=== PATIENT | male | born 1945 | race Caucasian/White ===

== ENCOUNTER 2020-10-17 16:31 | Inpatient (IN) | payer OTHER ==
[~2020-10-17] VITALS: Ht 182.9 cm; Wt 105.6 kg
[2020-10-17] MEDS ORDERED: POTCHL20ER PO (17:09)
[2020-10-17] MEDS ORDERED: FURO40 PO (17:09)
[2020-10-17] MEDS ORDERED: ZINC15 PO (17:09)
[2020-10-17] MEDS ORDERED: VITAMIN D325 MC3 PO (17:10)
[2020-10-17 17:29] LABS: BASOPHILS ABSOLUTE AUTO 0.02 K/mm3 (0.00-0.23); BASOPHILS PERCENT AUTO 0 % (0-2); EOSINOPHILS PERCENT AUTO 0 % (0-6); Hematocrit 48.5 % (37.0-53.0); Hemoglobin 15.2 g/dL (13.5-17.5); Mean Corpuscular HGB 27.1 pg (26.0-34.0); Mean Corpuscular HGB Conc 31.3 g/dL (31.5-36.5); Mean Corpuscular Volume 87 fL (80-100); Mean Platelet Volume 9.9 fL (9.1-12.4); Platelet Count 218 K/mm3 (150-400); RDW Coefficient Variation 13.7 % (11.7-14.2); RDW Standard Deviation 44.4 fL (35.1-46.3); Red Blood Cell Count 5.61 M/mm3 (4.30-5.90); White Blood Cell Count 6.59 K/mm3 (4.00-11.30)
[2020-10-17 17:31] LABS: IMMATURE GRAN ABSOLUTE AUTO 0.06 K/mm3 (0.00-0.10); IMMATURE GRAN PERCENT AUTO 1 % (0-1); LYMPHOCYTES ABSOLUTE AUTO 0.42 K/mm3 (0.84-5.20); LYMPHOCYTES PERCENT AUTO 6 % (21-46); MONOCYTES ABSOLUTE AUTO 0.32 K/mm3 (0.16-1.47); MONOCYTES PERCENT AUTO 5 % (4-13); NEUTROPHILS ABSOLUTE AUTO 5.77 K/mm3 (1.96-9.15); NEUTROPHILS PERCENT AUTO 88 % (41-73)
[2020-10-17 17:43] LABS: Alanine Aminotransfer (ALT/SGP 90 U/L (12-78); Albumin, Blood 2.9 g/dL (3.4-5.0); Albumin/Globulin Ratio 0.8 (0.8-1.8); Alk Phos 70 U/L (50-136); Anion Gap 7 mmol/L (6-16); Aspartate Aminotrans (AST/SGOT 87 U/L (12-37); Bilirubin, Total 0.7 mg/dL (0.1-1.0); Blood Urea Nitrogen 21 mg/dL (8-24); Bun/Creatinine Ratio 32.1 (12.0-20.0); CO2, Blood 28 mmol/L (21-32); Calcium, Blood 8.3 mg/dL (8.5-10.1); Chloride, Blood 108 mmol/L (98-108); Creatinine, Blood 0.65 mg/dL (0.60-1.20); Globulin, Blood 3.6 g/dL (2.2-4.0); Glomerular Filtration Rate >60 (60-); Glucose, Blood 109 mg/dL (70-99); Potassium, Blood 3.3 mmol/L (3.5-5.5); Sodium, Blood 143 mmol/L (136-145); Total Protein, Blood 6.5 g/dL (6.4-8.2)
[2020-10-17 17:44] LABS: International Normalized Ratio 1.14; Prothrombin Time Results 12.1 Sec (9.7-11.5)
[2020-10-17 17:51] LABS: BAND PERCENT MAN 1 % (0-8); BASOPHILS PERCENT MAN 0 % (0-2); EOSINOPHILS PERCENT MAN 0 % (0-6); LYMPHOCYTES ABSOLUTE MAN 0.13 K/mm3 (0.84-5.20); LYMPHOCYTES PERCENT MAN 2 % (21-46); MONOCYTES ABSOLUTE MAN 0.46 K/mm3 (0.16-1.47); MONOCYTES PERCENT MAN 7 % (4-13); NEUTROPHILS ABSOLUTE MAN 5.99 K/mm3 (1.96-9.15); SEG NEUTROPHILS PERCENT MAN 90 % (41-73); TOTAL CELLS COUNTED 100
[2020-10-17 18:03] LABS: Influenza A, PCR Negative (NEGATIVE); Influenza B, PCR Negative (NEGATIVE); Resp Syncytial Virus, PCR Negative (NEGATIVE)
[2020-10-17 18:11] LABS: SARS-Cov-2 (COVID-19) PCR, MMC Positive (NEGATIVE)
--- NOTE | 2020-10-18 01:15 | NUR ---
TX TO ICU PT ARRIVED FROM ED JUST AFTER 2100. PT ARRIVED ON 4L O2 VIA NC SATTING AT 90% WITH HR AFIB 117. RESPIRATIONS 32/MIN. DR GEORGE CAME UP TO SEE PT ROUGHLY 45 MINUTES LATER AND STATED THAT PT IS POSSIBLE PCU STATUS AND TO NOTIFY HIM IF PT DECLINED. WENT IN TO REASSESS PT AND START ADMITTING ORDERS FROM DR GEORGE AND PT RESPIRATIONS WERE UP TO 38, HR REMAINED ELEVATED AT 118 BPM, AND O2 SATS WERE 84-85% ON 4L. INCREASED O2 TO 6L TO GET SATS UP TO 90-91%. PT SEEMED A BIT MORE LETHARGIC AND TOOK LONGER TO ANSWER QUESTIONS. NOTIFIED DR GEORGE OF CHANGE IN PT STATUS, RECIEVED ORDER TO TRANSFER PT TO ICU ON PCU STATS. GAVE PT ORDERED ABX AND DEXAMETHASONE AND THEN GAVE REPORT TO [employer] WORKERMARTÍNEZ SMALLS. PT TRANSFERRED TO ICU5 AT 0022.
--- NOTE | 2020-10-18 03:03 | NUR ---
PT TO ICU 5 VIA HOSPITAL BED WITH MEDICAL FLOOR RN @ 0020. PT ALERT AND ORIENTED TO SELF, EVENT, LOCATION AND FOLLOWING DIRECTIONS, PT CALM AND COOPERATIVE, JOKING WITH STAFF. O2 PER NC TITRATED BETWEEN 4 AND 6L TO MAINTAIN SATURATIONS> 90%, PT TACHYPNEIC WITH SHALLOW BREATHS, RR 28-35, PT DENIES SOB, PT STS HE DOES NOT WEAR OXYGEN AT HOME AND DOES NOT WEAR CPAP/BIPAP AT NIGHT, CLUBBING NOTED TO FINGERNAILS, PT DOES NOT APPEAR TO BE IN RESPIRATORY DISTRESS. MONITOR SHOWS AFIB, HR 90'S-120, BP SOFT BUT STABLE WITH MAPS 80'S. PT STAPLES, REPOSITIONS SELF IN BED. RASH NOTED TO MID ABD AREA, SKIN OTHERWISE INTACT. PT DENIES GI/ ISSUES. POWERGLIDE PLACED TO PTS R UPPER ARM. LEVAQUIN INF COMPLETED, REMDESIVER INITIATED TO PERIPHERAL IV, KCL STARTED PER POWER GLIDE. CALL LIGHT WITH REACH, PT EDUCATED ON USE. PT DENIES ANY NEEDS, REPORTS THAT HE JUST WANTS TO GET SOME SLEEP.
[2020-10-18 03:58] LABS: BASOPHILS ABSOLUTE AUTO 0.01 K/mm3 (0.00-0.23); BASOPHILS PERCENT AUTO 0 % (0-2); EOSINOPHILS PERCENT AUTO 0 % (0-6); Hematocrit 44.3 % (37.0-53.0); Hemoglobin 13.7 g/dL (13.5-17.5); Mean Corpuscular HGB 27.2 pg (26.0-34.0); Mean Corpuscular HGB Conc 30.9 g/dL (31.5-36.5); Mean Corpuscular Volume 88 fL (80-100); Mean Platelet Volume 9.6 fL (9.1-12.4); Platelet Count 188 K/mm3 (150-400); RDW Standard Deviation 44.7 fL (35.1-46.3); Red Blood Cell Count 5.03 M/mm3 (4.30-5.90); White Blood Cell Count 5.95 K/mm3 (4.00-11.30)
[2020-10-18 04:01] LABS: IMMATURE GRAN ABSOLUTE AUTO 0.04 K/mm3 (0.00-0.10); IMMATURE GRAN PERCENT AUTO 1 % (0-1); LYMPHOCYTES ABSOLUTE AUTO 0.33 K/mm3 (0.84-5.20); LYMPHOCYTES PERCENT AUTO 6 % (21-46); MONOCYTES PERCENT AUTO 3 % (4-13); NEUTROPHILS ABSOLUTE AUTO 5.37 K/mm3 (1.96-9.15); NEUTROPHILS PERCENT AUTO 90 % (41-73)
[2020-10-18 04:15] LABS: Alanine Aminotransfer (ALT/SGP 82 U/L (12-78); Albumin, Blood 2.4 g/dL (3.4-5.0); Albumin/Globulin Ratio 0.8 (0.8-1.8); Alk Phos 60 U/L (50-136); Anion Gap 5 mmol/L (6-16); Aspartate Aminotrans (AST/SGOT 85 U/L (12-37); Bilirubin, Total 0.6 mg/dL (0.1-1.0); Blood Urea Nitrogen 19 mg/dL (8-24); Bun/Creatinine Ratio 34.4 (12.0-20.0); CO2, Blood 29 mmol/L (21-32); Calcium, Blood 7.7 mg/dL (8.5-10.1); Chloride, Blood 113 mmol/L (98-108); Creatinine, Blood 0.55 mg/dL (0.60-1.20); Globulin, Blood 3.1 g/dL (2.2-4.0); Glomerular Filtration Rate >60 (60-); Glucose, Blood 113 mg/dL (70-99); Potassium, Blood 3.7 mmol/L (3.5-5.5); Sodium, Blood 147 mmol/L (136-145); Total Protein, Blood 5.5 g/dL (6.4-8.2)
--- NOTE | 2020-10-18 06:49 | NUR ---
SHIFT SUMMARY PT RESTED WELL T/O NIGHT, REMAINS AROUSABLE TO VERABL STIMULI, CALM AND COOPERATIVE. OXYGEN NEEDS INCREASED WHILE SLEEPLING, CURRENTLY ON 10L PER OXYMIZER. MONITOR SHOWS AFIB WITH BBB, HR INCREASED TO 120-130'S, METOPROLOL ADMINISTERED, HR NOW 90'S-110, BP STABLE. PT REPOSITIONS SELF IN BED, NEEDS SOME ASSISTANCE WITH USE OF URINAL. CALL LIGHT WITHIN REACH.
--- NOTE | 2020-10-18 10:07 | NUR ---
AM NOTE.... ASSUMED CARE OF PT APROX 0700 PT IS A&Ox4 WITH SOME CONFUSION AT TIMES. PT WAS ADMITTED FOR COVID-19 PT IS CURRENTLY ON 10 OXYMIZER WITH O2 SATS >90%, L/S DIM AND CLEAR IN THE UPPER LOBES W/FINE CRACKLES NOTED IN THE BASES. RR EVEN AND UNLABORED BUT DYSPNIC W/ACTIVITY. PT IS IN AFIB W/BBB IN THE 100'S-120'S BP STABLE. NO EDEMA NOTED ON ASSESSMENT. PT HAD REQUESTED TO GET UP OUT OF BED AND INTO THE RECLINER CHAIR, PT WAS MODERATE ASSIST TO THE CHAIR, PT'S O2 SATS STAYED >90% DURING THE TRANSFER. BT PRESENT AND HYPOACTIVE, ABD IS SOFT AND NONTENDER TO PALP. WILL CONTINUE TO MONITOR.
--- NOTE | 2020-10-18 13:53 | NUR ---
Echocardiogram done by Patricia Monk RDCS.
[2020-10-18 17:40] LABS: Source, Urine Catheter
[2020-10-18 17:43] LABS: Appearance, Urine Clear (Clear); Bilirubin, Urine Neg (Neg); Blood, Urine 2+ (Neg); Color, Urine Yellow (P-Yellow); Glucose Qualitative, Urine Neg (Neg); Ketones, Urine 2+ (Neg); Leukocyte Esterase, Urine 1+ (Neg); Nitrite, Urine Neg (Neg); Protein, Urine 3+ (Neg); Urobilinogen, Urine NORM (Normal)
--- NOTE | 2020-10-18 17:49 | NUR ---
SHIFT SUMMARY... AT 1611 THE PT'S HR INCREASED FROM AFIB IN THE 100'S-110'S TO THE 140'S-150'S, PT'S O2 SATS DROPPED DURING THIS TIME WELL TO THE MID 80'S ON OXYMIZER AT 13-15L, WAS UPDATED AND ORDERS WERE OBTAINED FOR A VALLE CATH D/T INCREASED WORK OF BREATHING AND DECREASED O2 SATS WITH PT'S ATTEMPTING TO VOID AND MOVEMENTS IN THE BED FOR ATTENDS CHANGES AND AN AMIODERONE BOLUS AND DRIP FOLLOWING THE BOLUS. PT WAS PLACED ON AN AIRVO AT 60l AND 80% FIO2 WITH O2 SATS 90-94%. PT'S BP's CONTINUE TO BE SOFT WITH SBP IN THE 90'S- LOW 100'S. PT'S FAMILY UPDATED ON THE PT'S CONDITON AND PLAN OF CARE. WILL CONTINUE TO MONITOR UNTIL REPORT IS GIVEN TO ONCOMING RN.
[2020-10-18 17:53] LABS: Bacteria Rare /hpf; Red Blood Cells, Urine Not Seen /hpf (0-2); Squamous Epithelial Cells Not Seen /hpf (Few); White Blood Cells, Urine 0-2 /hpf (0-5)
--- NOTE | 2020-10-18 21:32 | NUR ---
ASSUMPTION OF CARE PT RESTING IN BED, WATCHING TELEVISION, ORIENTED TO SELF, EVENT, LOCATION, AND FOLLOWING DIRECTIONS. PT ON AIRVO @ 60L AND FIO2 82% TO MAINTAIN OXYGEN SATURATIONS> 89%, PT IS TACHYPNEIC WITH SHALLOW RESPIRATIONS BUT BREATHING IS UNLABORED, DOES APPEAR TO BE IN RESP DISTRESS AND DENIES SOB. MONITOR SHOWS AFIB WITH HR 90'S-120, BP SOFT BUT STABLE WITH MAPS> 65, AMIO GTT INF @ 1 (SEE FLOWSHEET FOR RATE CHANGES). PT TOLERATING PO FLUIDS, DENIES GI ISSUES. VALLE IN PLACE. PT STAPLES, REPOSITIONSE SELF IN BED, CALL LIGHT WITHIN REACH.
--- NOTE | 2020-10-18 22:49 | NUR ---
OXYGEN DESATURATIONS TO 83%, TO PTS ROOM, PT HAD REMOVED AIRVO. PT REPORTS DISCOMFORT WITH AIRVO STATING "IT FEELS LIKE A LEAF BLOWER", DECREASED SETTINGS ON AIRVO TO 50L AND FIO2 70% AND O2 SATURATIONS MAINTAINED 90-92%, PT STS IT FEELS A LITTLE BETTER AND AGREEABLE TO CONTINUE WEARING AIRVO.
[2020-10-19 04:50] LABS: Anion Gap 6 mmol/L (6-16); Blood Urea Nitrogen 26 mg/dL (8-24); Bun/Creatinine Ratio 44.8 (12.0-20.0); CO2, Blood 26 mmol/L (21-32); Calcium, Blood 8.3 mg/dL (8.5-10.1); Chloride, Blood 116 mmol/L (98-108); Creatinine, Blood 0.58 mg/dL (0.60-1.20); Glomerular Filtration Rate >60 (60-); Glucose, Blood 141 mg/dL (70-99); Phosphorus, Blood 2.6 mg/dL (2.5-4.9); Potassium, Blood 3.7 mmol/L (3.5-5.5); Sodium, Blood 148 mmol/L (136-145)
--- NOTE | 2020-10-19 06:35 | NUR ---
SHIFT SUMMARY PT RESTED T/O SHIFT, REMAINS ORIENTED x4, VERY PLEASANT AND COOPERATIVE, MORE INTERACTIVE WITH STAFF AND CARRYING ON CONVERSATIONS. PT ON 11L PER OXYMIZER FOR MOST OF NIGHT, TITRATED TO NC @ APPROX 0400 AND PT CURRENTLY AT 4L PER NC WITH O2 SATURATIONS 89-91%. PT DENIES SOB. PT REMAINS IN AFIB WITH HR 90-120, BP STABLE. PT REPORTING INCREASED APPETITE, REQUESTS OATMEAL AND CHOCOLATE MILK FOR BREAKFAST, FOOD REQUEST PLACED. VALLE REMAINS IN PLACE WITH APPROX 350ml URINE OUT THIS SHIFT. CALL LIGHT WITHIN REACH. PROVIDED PT WITH TELEPHONE UPON REQUEST, PT STS HE WOULD LIKE TO CALL HIS TODAY, PT INSTRUCTED ON USE OF TELEPHONE.
--- NOTE | 2020-10-19 08:16 | NUR ---
AM NOTE... ASSUMED CARE OF PT APROX 0700, PT IS A&Ox4 AND 1 PERSON ASSIST W/FWW TO THE RECLINER CHAIR FOR BREAKFAST, PT TOLERATED THIS WELL ON 6L NC, HIS O2 SATS DROPPED INTO 85%-87% BUT RECOVERED QUICKLY. L/S DIM T/O. BT PRESENT AND HYPERACTIVE, ABD IS SOFT AND NONTENDER TO PLAP. NO EDEMA NOTED ON ASSESSMENT, PT IS IN AFIB W/BBB IN THE 100'S-120'S AND 120'S-140'S WITH ACTIVITY. PT IS ON AMNIODERONE GTT RUNNING AT 0.5MG PER ORDERS. VALLE IS PATENT AND DRAINING CLEAR VARSHA URINE TO GRAVITY. CALL LIGHT IN REACH WILL CONTINUE TO MONITOR.
--- NOTE | 2020-10-19 15:12 | NUR ---
PT UPDATE.... PT HAD GOTTEN HIMSELF OUT OF BED WITH OUT STAFF ASSISTANCE, DURING THIS TIME THE PT HAD PULLED HIS POWERGLIDE RESIDENTIAL OUT OF HIS ARM, THE AMIODERONE GTT WAS STILL RUNNING BUT THE TUBING HAD BROKEN OFF THE POWERGLIDE AND WAS RUNNING ON THE FLOOR. IT IS UNKNOWN HOW LONG THE AMIODERONE WAS RUNNING ON THE FLOOR THERE WAS A MED SIZE WET SPOT ON THE FLOOR NEXT TO THE BED. PT WAS HELPED BACK TO BED BY THIS RN PER THE PT'S REQUEST. THE POWERGLIDE WAS REMOVED THE REST OF THE WAY BY THIS RN WNL. BEDALARM IS NOW ON. WILL CONTINUE TO MONITOR.
--- NOTE | 2020-10-19 18:21 | NUR ---
SHIFT SUMMARY.... NO ACUTE NEGATIVE CHANGES NOTED THIS SHIFT. PT'S VS HAVE BEEN STABLE T/O SHIFT. PT HAS BEEN ON RA TO 4L NC WITH O2 SATS>90% WHEN PT WAS UP IN THE RECLINER CHAIR HE REMOVED HIS O2 AND AND WAS AT 90-93% HOWEVER WHEN PT IS IN BE HIS O2 NEEDS INCREASE. PT REFUSED LUNCH AND DINNER TODAY. PT HAS ALSO BEEN REFUSING TO PRONE, PT HAS BEEN EDUCATED ON THE IMPORTANCE OF PRONING AND HOW IT HELPS WITH COVID PTS BUT PT HAS REFUSED TO EVEN ATTEMPT PRONING AT THIS TIME. PT'S VALLE PATENT AND DRAINING CLEAR VARSHA URINE TO GRAVITY. PT'S FAMILY UPDATED SEVERAL TIMES T/O THIS SHIFT ON HIS CONDITION AND PLAN OF CARE. PER THE FAMILY THEY WILL BRING IN HIS PERSONAL RADIO AND OTHER THINGS FROM HOME TO HELP IMPROVE HIS MOOD. CALL LIGHT IN REACH WILL CONTINUE TO MONITOR UNTIL REPORT IS GIVEN TO ONCOMING RN.
--- NOTE | 2020-10-19 21:03 | NUR ---
ASSUMPTION OF CARE PT RESTING IN BED, ORIENTED TO SELF, EVENT, LOCATION AND FOLLOWING DIRECTIONS. PT VOCALIZES FRUSTRATION WITH STILL BEING IN THE HOSPITAL, SAT DOWN AND LISTENED TO PT, EXPLAINED REMDESIVIR MEDICATION FOR TREATMENT OF COVID AND LENGTH OF COURSE, ENCOURAGED PT TO DISCUSS WITH PROVIDER HIS DESIRED COURSE OF TREATMENT, PT STS HE WILL TALK WITH HIS TOMORROW AND DECIDE WHAT HE WANTS TO DO, PT RECEPTIVE TO INFORMATION REGARDING TREATMENT, REMAINS CALM AND COOPERATIVE. PT ON 4L PER NC TO MAINTAIN O2> 90%, MONITOR SHOWS AFIB WITH HR 90'S-120, BP STABLE, AMIO GTT COMPLETE @ 1999. PT DENIES GI/ ISSUES, VALLE REMAINS IN PLACE, PO FLUIDS ENCOURAGED. CALL LIGHT WITHIN REACH.
--- NOTE | 2020-10-20 01:30 | NUR ---
PT AWAKE, REPORTS BEING UNABLE TO SLEEP, CALL PLACED TO DR GEORGE, NEW ORDER FOR MELATONIN PRN, SEE MAR FOR ADMINISTRATION.
--- NOTE | 2020-10-20 03:30 | NUR ---
HR SUSTAINED IN 130'S-140'S, WHEN HEADING TO PTS ROOM FOR PRN LOPRESSOR ADMINISTRATION BED ALARM WAS ACTIVATED, PT WAS ATTEMPTING TO GET OUT OF BED. PT INSISTENT ON GETTING UP TO CHAIR. PT TO CHAIR WITH WALKER, SBA. PT REPORTS BEING TIRED OF LAYING IN BED. WHEN ASKED IF PT KNEW WHERE HE WAS PT STS "NO, IS THAT IMPORTANT?", PT ORIENTED SELF AND SURROUNDINGS ONLY. PT REORIENTED TO LOCATION AND SITUATION/Dx. PT STS HE WANTS TO CALL HIS , TOLD PT IT WAS 0300 AND ASKED IF HIS WOULD BE UP AT THIS TIME, PT STS "OH, PROBABLY NOT, I GUESS I'LL WAIT." PT MEDICATED FOR HR, LAB TO ROOM FOR AM LABS, LINENS CHANGED IN BED AND PT AGREEABLE TO LAY BACK DOWN. INCREASED OXYGEN NEEDS TO 4L PER NC WITH ACTIVITY. PT APPEARS TO BE SLEEPING AT THIS TIME.
[2020-10-20 03:58] LABS: BASOPHILS ABSOLUTE AUTO 0.02 K/mm3 (0.00-0.23); BASOPHILS PERCENT AUTO 0 % (0-2); EOSINOPHILS PERCENT AUTO 0 % (0-6); Hematocrit 47.6 % (37.0-53.0); Hemoglobin 15.2 g/dL (13.5-17.5); Mean Corpuscular HGB 27.7 pg (26.0-34.0); Mean Corpuscular HGB Conc 31.9 g/dL (31.5-36.5); Mean Corpuscular Volume 87 fL (80-100); Mean Platelet Volume 10.2 fL (9.1-12.4); Platelet Count 271 K/mm3 (150-400); RDW Coefficient Variation 13.8 % (11.7-14.2); RDW Standard Deviation 44.4 fL (35.1-46.3); Red Blood Cell Count 5.48 M/mm3 (4.30-5.90); White Blood Cell Count 8.75 K/mm3 (4.00-11.30)
[2020-10-20 04:03] LABS: IMMATURE GRAN ABSOLUTE AUTO 0.07 K/mm3 (0.00-0.10); IMMATURE GRAN PERCENT AUTO 1 % (0-1); LYMPHOCYTES ABSOLUTE AUTO 0.79 K/mm3 (0.84-5.20); LYMPHOCYTES PERCENT AUTO 9 % (21-46); MONOCYTES ABSOLUTE AUTO 0.46 K/mm3 (0.16-1.47); MONOCYTES PERCENT AUTO 5 % (4-13); NEUTROPHILS ABSOLUTE AUTO 7.41 K/mm3 (1.96-9.15); NEUTROPHILS PERCENT AUTO 85 % (41-73)
[2020-10-20 04:24] LABS: Anion Gap 10 mmol/L (6-16); Blood Urea Nitrogen 29 mg/dL (8-24); Bun/Creatinine Ratio 43.4 (12.0-20.0); CO2, Blood 23 mmol/L (21-32); Calcium, Blood 8.6 mg/dL (8.5-10.1); Chloride, Blood 114 mmol/L (98-108); Creatinine, Blood 0.67 mg/dL (0.60-1.20); Glomerular Filtration Rate >60 (60-); Glucose, Blood 154 mg/dL (70-99); Magnesium, Blood 2.3 mg/dL (1.6-2.4); Phosphorus, Blood 2.8 mg/dL (2.5-4.9); Potassium, Blood 3.5 mmol/L (3.5-5.5); Sodium, Blood 147 mmol/L (136-145)
--- NOTE | 2020-10-20 06:34 | NUR ---
SHIFT SUMMARY PTS CONFUSION, RESTLESS AND AGITATION CONTINUES. PTS HR INCREASED TO 130'S-150'S EARLY THIS AM, ATTEMPTED TO GET OUT OF BED AN ADDITIONAL TIME. TO PTS ROOM ENCOURAGED PT TO STAY IN BED R/T HR, PT REFUSED TO STAY IN BED, STOOD UP AND ATTEMPTED AMBULATION TO CHAIR WITHOUT WALKER. PT ASSISTED TO CHAIR, TAB ALARM IN PLACE. CALL PLACED TO DR GEORGE, NEW ORDER FOR PRECEDEX GTT AND CHANGE TO ICU STATUS, PRECEDEX NOT YET INITIATED. DISCUSSED WITH PT TUBES/LINES/CORDS/LACK OF SLEEP INCREASING RISK FOR FALLS AND RISK OF BLEEDING R/T ANTICOAGULATION, PT UNINTERESTED IN EDUCATION, REFUSED ANY FURTHER DISCUSSION WITH THIS RN. PT ON 4L PER NC TO MAINTAIN O2 SATURATIONS> 90%, VALLE REMAINS IN PLACE WITH APPROX 350ml URINE OUTPUT THIS SHIFT.
--- NOTE | 2020-10-20 08:08 | NUR ---
AM NOTE.... ASSUMED CARE OF PT APROX 0700, PT IS UP IN THE CHAIR AND ATTEMPTING TO GET UP WITH OUT HELP, PT REMINDED THAT HE HAS SEVERAL LINES AND WIRES AND NEEDS HELP WITH AMBULATION, PT STILL CONTINUED TO ATTEMPT TO GET UP. THIS RN ENTERED THE ROOM TO ASSIST THE PT WITH GETTING BACK TO BED, PT WAS CONFUSED TO WHERE HE WAS BUT KNEW THE TOWN WAS [place]. PER NOC SHIFT RN REPORT PT HAS NOT SLEPT HARDLY AT ALL THE PAST 2-3 NIGHTS, PT HAS INCREASED CONFUSION, AGITATION AND IMPULSIVITY PRECEDEX WAS STARTED PER ORDERS. PT IS ON 4L NC WITH O2 SATS >90%, L/S DIM AND CLEAR T/O, RR EVEN UNLABORED IN THE 20'S. HE IS IN AFIB RVR W/BBB IN THE 120'S-140'S, BP STABLE. NO EDEMA NOTED ON ASSESSMENT. BT PRESENT AND HYPOACTIVE, ABD IS SOFT AND NONTENDER TO PALP. PT HAS NOT HAD A BM SINCE ADMIT WILL NOTIFY PROVIDER AND START BOWEL CARE. PT'S FAMILY HAS BROUGHT IN HIS RADIO FROM HOME ALONG WITH SOME OF HIS PUZZLE BOOKS AND MAGAZINES HE LIKES TO READ, PT WAS NOT INTRESTED IN THESE AT THE TIME. CALL LIGHT IN REACH WILL CONTINUE TO MONITOR.
--- NOTE | 2020-10-20 17:30 | NUR ---
SHIFT SUMMARY.... NO ACUTE NEGATIVE CHANGES NOTED THIS SHIFT, PT HAS BEEN ON PRECEDEX AND HAS SLEPT FOR MOST OF TODAY. PRECEDEX WAS RUNNING AT 0.2MCG THIS WAS STOPPED AT 1530. PT'S VALLE WAS NOTED TO BE LEAKING AROUND THE URETHRA, THE VALLE WAS SWITCHED FROM A 14FR TO A 16F COUDE, ONCE THE NEW VALLE WAS PLACED THERE WAS A SMALL AMOUNT OF RAMONA RED BLOOD AT THE TIP OF HIS MEATUS, PT DENIED ANY PAIN AT THE TIME. PT'S VS HAVE BEEN STABLE T/O SHIFT. PT CONINUTES TO BE IN AFIB WITH RATES IN THE 70'S-100'S. PT HAS BEEN ON NC BETWEEN 3l-8l T/O THE SHIFT WITH O2 SATS >90%. PT HAS NOT HAD A BM THIS SHIFT, BOWEL CARE STARTED PER ORDERS. PT WORKED WITH PT/OT THIS SHIFT AND DID WELL. CALL LIGHT IN REACH WILL CONTINUE TO MONITOR.
--- NOTE | 2020-10-20 19:39 | NUR ---
ASSUMED CARE OF PT, REPORT RECEIVED. PT IS NOTED UP IN RECLINER CHAIR AT BEDSIDE, DENIES SOB/DYSPNEA AT THIS TIME, STATES THAT HIS BREATHING IS ACTUALLY FEELING PRETTY GOOD, DENIES PAIN, DENIES CP/PRESSURE, DENIES NUMBNESS/TINGLING, IS ASKING FOR A "BOARD WITH A NAIL IN IT" TO TURN OFF THE TV AND STATES THAT HE CAN'T FIND THE TV CONTROL. PT IS ASSISTED IN LOCATING CALL LIGHT IN CHAIR AT HIS LEFT SIDE AT THIS TIME. HE IS SPEAKING IN FULL SENTENCES, NO VISIBLE INCREASED WORK OF BREATHING IS NOTED AT THIS TIME, OCCASIONAL CONGESTED COUGH, PT DENIES SPUTUM PRODUCTION, LUNGS ARE CLEAR AND DIM MID TO BASES, NASAL CANNULA RESTING WITH ONE PRONG IN ONE NARE AND THE OTHER TO PT'S CHEEK AT 4 L/MIN CURRENTLY, SATS LOW TO MID 90S. AFIB CONTINUES WITH BBB, PRESSURES STABLE THROUGHOUT DAY, RATE CURRENTLY 90-100S, NO EDEMA IS NOTED, BRISK CAP REFILL, STRONG PERIPHERAL PULSES. ACTIVE BOWEL TONES, ABD SOFT, DISTENDED, NONTENDER TO PALP. VALLE CATH IN PLACE DRAINING CLEAR DARK YELLOW URINE TO GRAVITY. IV ACCESS IS NOTED TO RIGHT FOREARM, SITE WNL AND SALINE LOCKED. TAB ALARM IN PLACE AT THIS TIME.
--- NOTE | 2020-10-20 22:35 | NUR ---
SPOKE WITH HOSPTIALIST YAYA REGARDING PT HEART RATE AND BP TREND THIS SHIFT WELL I&O, DAILY WEIGHTS, RESP RATE, LABS, AND APPEARANCE, ORDERS RECEIVED FOR FLUID BOLUS AND MAINTENANCE FLUIDS AT 100 ML/HR X TOTAL OF 2 LITERS. STARTED INFUSING, WILL MONITOR.
[2020-10-21 03:48] LABS: Hematocrit 43.8 % (37.0-53.0); Hemoglobin 13.8 g/dL (13.5-17.5); Mean Corpuscular HGB 27.6 pg (26.0-34.0); Mean Corpuscular HGB Conc 31.5 g/dL (31.5-36.5); Mean Corpuscular Volume 88 fL (80-100); Mean Platelet Volume 10.4 fL (9.1-12.4); Platelet Count 241 K/mm3 (150-400); RDW Coefficient Variation 13.7 % (11.7-14.2); RDW Standard Deviation 44.3 fL (35.1-46.3); White Blood Cell Count 8.22 K/mm3 (4.00-11.30)
[2020-10-21 04:08] LABS: Alanine Aminotransfer (ALT/SGP 65 U/L (12-78); Albumin, Blood 2.4 g/dL (3.4-5.0); Albumin/Globulin Ratio 0.9 (0.8-1.8); Alk Phos 50 U/L (50-136); Anion Gap 6 mmol/L (6-16); Aspartate Aminotrans (AST/SGOT 34 U/L (12-37); Bilirubin, Total 0.5 mg/dL (0.1-1.0); Blood Urea Nitrogen 32 mg/dL (8-24); Bun/Creatinine Ratio 49.8 (12.0-20.0); CO2, Blood 26 mmol/L (21-32); Calcium, Blood 7.8 mg/dL (8.5-10.1); Chloride, Blood 119 mmol/L (98-108); Creatinine, Blood 0.64 mg/dL (0.60-1.20); Globulin, Blood 2.8 g/dL (2.2-4.0); Glomerular Filtration Rate >60 (60-); Glucose, Blood 138 mg/dL (70-99); Phosphorus, Blood 3.2 mg/dL (2.5-4.9); Potassium, Blood 3.6 mmol/L (3.5-5.5); Sodium, Blood 151 mmol/L (136-145); Total Protein, Blood 5.2 g/dL (6.4-8.2)
--- NOTE | 2020-10-21 06:59 | NUR ---
PT RESTS QUIETLY THROUGHOUT SHIFT, HEART RATE AND BLOOD PRESSURE IS NOTED TO HAVE IMPROVED WITH FLUID ADMINISTRATION, LUNGS REMAIN CLEAR, DIM MID TO BASES BILAT, SATS CONTINUE LOW 90S WITH OXYGEN VIA NASAL CANNULA AT 6 L/MIN, RESP RATE REMAINS NEAR 30 THROUGHOUT SHIFT HOWEVER PT DOES TOLERATE TURNING AND REPOSITIONING HIMSELF WELL. HE IS ORIENTED TO SELF AND FAMILY THROUGHOUT SHIFT, CONTINUES TO BE ABLE TO STATE THAT IT IS October BUT IS ONLY INTERMITTENTLY ABLE TO STATE THAT HE IS IN THE HOSPITAL FOR COVID 19, HE IS CONSISTENTLY ABLE TO STATE THAT HE IS IN [facility]. HE DOES REPORT THAT HE WAS ABLE TO SLEEP BETTER THIS SHIFT THAN PREVIOUS NIGHTS.
--- NOTE | 2020-10-21 08:35 | NUR ---
ASSUMED CARE RECEIVED REPORT FROM AMRTÍNEZ CERON. PT IS SITTING UP IN CHAIR, WITH BREAKFAST TRAY (BUT NOT EATING). HE IS ALERT AND ORIENTED TO SELF, PLACE, FAMILY, AND PRESIDENT. NS INFUSING AT 100 ML/HR, DC'D PER DR. ROJAS. HE IS ON 7L NC, SPO2 95%. PT IN AFIB, RATE 120-150, PT DENIES CHEST PAIN, SOB, AND APPEARS AT BASELINE MENTATION ETIENNE. GAVE METOPROLOL TARTRATE, DR. ROJAS SAW PT, AND WILL CONSIDER ORDERING DIGOXIN PO. DR. ROJAS STATES TO GIVE TIME FOR METOPROLOL TO WORK AND POSSIBLY THE DIGOXIN BEFORE GOING TO IV MEDS. ALONG PT IS ASYMPTOMATIC. BED LOW AND LOCKED. CALL LIGHT WITHIN REACH.
--- NOTE | 2020-10-21 12:46 | NUR ---
UPDATE HR UNDER BETTER CONTROL AFTER METOPROLOL GIVE, RATE IN THE LOW 100s. REMAINS IN A CONTROLLED RATE EVEN WITH ACTIVITY. WILL CONTINUE TO MONITOR. DR. ROJAS AWARE.
--- NOTE | 2020-10-21 14:55 | NUR ---
UPDATE PHYS THERAPY AND OT BOTH WORKED WELL WITH JOJO, TIM FROM OT SAID HER RECCOMENDATION IS SNF, BUT JOJO IS DETERMINED HE WILL GO HOME AFTER THIS. 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 RADHA, JOJO's DAUGHTER IN[place], CALLED AND WAS UPDATED FROM LAST NIGHT TO TODAY. SHE STATES HER MAIN CONCERNS IS HIM COMING HOME TOO SOON, WHEN HE MAY BE TO WEAK - HIS HOUSE HAS 21 STAIRS JUST TO GET IN THE HOUSE. CURRENTLY IN CHAIR, TOLERATING MILD ACTIVITY (TRANSPORTATION FROM BED TO CHAIR OR COMMODE, AND BACK, AND WALKING AROUND BED) WELL, MAINTAINING SPO2 > 90%. HE IS CURRENTLY ON 5L NC. PT IS ALERT AND ORIENTED TO SELF, SURROUNDINGS, SITUATION, AND TIME - APPEARING TO BE A GOOD IMPROVEMENT FROM YESTERDAY. CALL LIGHT WITHIN REACH.
--- NOTE | 2020-10-21 18:57 | NUR ---
SHIFT SUMMARY SEE PREVIOUS NOTES FOR UPDATES T/O SHIFT. NO MAJOR CHANGES TO PTs STATUS. CURRENTLY ON 5 L NC, SPO2 90-95% - PT IS A 1+ ASSIST BUT DOES TOLERATE ACTIVITY WITHOUT DROPPING SPO2. PT HAD TRIED TO GET OUT OF THE CHAIR, AND BACK TO BED WITHOUT CALLING FOR A NURSE. HE DIDN'T GET FAR, BUT ALSO DIDNT FALL- HE STOOD UP AND SAT BACK DOWN. THIS RN CAME IN AND HELPED HIM, AND RE-EDUCATED HIM ABOUT USING THE CALL LIGHT, HE IS UNDERSTANDING. HE WAS PLACED IN BED, WITH THE SIDE RAILS UP. CALL LIGHT WITHIN REACH. VITALS STABLE. METOEPROLOL WAS CHANGED TO TID, RATE HAS BEEN 95-110. HAS CONTINUED TO DENY CHEST PAIN, SOB, AND NAUSEA. ALTHOUGH AFTER ACTIVITY PT DOES APPEAR TO BE MILDLY SOB. BED LOW AND LOCKED.
--- NOTE | 2020-10-21 19:45 | NUR ---
ASSUMED CARE OF PATIENT FROM MARTÍNEZ GORDON. PT HAS BEEN ORIENTED AND FOLLOWS DIRECTIONS. HE DENIES PAIN OR SOB. HE IS MILDLY TACHYPNEIC AND ON 5LPM O2 BY NC WITH SPO2 IN MID TO LOW 90'S.
--- NOTE | 2020-10-22 01:33 | NUR ---
PT WAKES UP AND TRIES TO GET OUT OF BED. HE STATES HE THOUGHT IT WAS MORNING AND TIME TO GET UP. HE IS EASILY REORIENTED TO PLACE AND TIME.
[2020-10-22 04:21] LABS: Albumin, Blood 2.5 g/dL (3.4-5.0); Anion Gap 5 mmol/L (6-16); Blood Urea Nitrogen 27 mg/dL (8-24); Bun/Creatinine Ratio 44.3 (12.0-20.0); CO2, Blood 27 mmol/L (21-32); Chloride, Blood 119 mmol/L (98-108); Creatinine, Blood 0.61 mg/dL (0.60-1.20); Glomerular Filtration Rate >60 (60-); Glucose, Blood 122 mg/dL (70-99); Phosphorus, Blood 3.1 mg/dL (2.5-4.9); Potassium, Blood 3.6 mmol/L (3.5-5.5); Sodium, Blood 151 mmol/L (136-145)
--- NOTE | 2020-10-22 06:52 | NUR ---
SHIFT SUMMARY: PT SLEEPS ON AND OFF FROM 2100 ON. HE AWAKENED ONCE IN THE MIDDLE OF THE NIGHT, CONFUSED ABOUT WHAT TIME IT WAS. HE WAS EASILY REORIENTED AND WENT BACK TO BED TO SLEEP. O2 TITRATED DOWN TO 4L NC, PT DENIES SOB, BUT HAS COARSE UNPRODUCTIVE COUGH ALL NIGHT. ROBITUSSIN HELPED COUGH SOMEWHAT. PT HAD FIRST BM SINCE 10/13, AND HAS VALLE TO GRAVITY.
--- NOTE | 2020-10-22 08:30 | NUR ---
INITIAL ASSESSMENT PATIENT ALERT AND ORIENTED X 4, AFEBRILE. GARBLED SPEECH NOTED. DENIES PAIN. PATIENT 1 PA WITH FWW. PATIENT WEAK. LUNGS CLEAR/ DIMINISHED THROUGHOUT. PATIENT HAS NONPRODUCTIVE COUGH. PATIENT SATTING 90% AND GREATER ON 4 L HUMIDIFIED O2. PATIENT DID NOT WANT PRN ROBITUSSIN THIS AM. PATIENT IN A. FIB WITH BBB. HEART MURMUR NOTED. HR 117. BP 145/ 96. PATIENT HAS NOT HAD BM SINCE September. PATIENT REFUSING SCHEDULED MIRALAX. VALLE DRAINING VARSHA COLORED URINE. SKIN DRY, FRAGILE. RAD NOTED TO MID ABD. BRUISING NOTED TO R HAND. IV FLUSHED AND SALINE LOCKED. PATIENT REPOSITIONING SELF IN BED. CALL LIGHT IN REACH. WILL CONTINUE TO MONITOR PATIENT FREQUENTLY THROUGHOUT SHIFT.
--- NOTE | 2020-10-22 12:30 | NUR ---
PATIENT AFEBRILE. HR IN THE LOW 100S. SBP IN THE LOW 100S. NO ACUTE CHANGES TO NOTE ON AT THIS TIME. NO COMPLAINTS. WILL CONTINUE TO MONITOR.
--- NOTE | 2020-10-22 18:38 | NUR ---
SHIFT SUMMARY PATIENT REMAINED MOSTLY ORIENTED, WITH GARBLED SPEECH. PATIENT 1 PA WITH FWW. PATIENT WORKED WITH PT TODAY AND PT STATED THAT THE PATIENT PERFORMED BETTER TODAY THAN YESTERDAY. PATIENT REMAINED AFEBRILE. PATIENT HAD NO COMPLAINTS OF PAIN. PATIENT REMAINED SATTING 90% AND GREATER ON 4 L HUMIDIFIED O2. LUNGS REMAINED CLEAR AND DIMINISHED. PATIENT CONTINUED TO HAVE OCCASIONAL, NONPRODUCTIVE COUGH. PATIENT REMAINED IN A. FIB WITH BBB. HR LOW 100S TO 1-TEENS. SBP LOW 100S TO 140S. NO BM THIS SHIFT. PATIENT ATE A LITTLE BREAKFAST AND LUNCH. VALLE DRAINED 400 MLS OF VARSHA COLORED URINE. NO CHANGE TO SKIN. PATIENT HAS BEEN REPOSITIONING SELF IN BED. PATIENT RECEIVED COMPLETE BED BATH THIS SHIFT. DAUGHTER IN LAW CALLED TWICE TO CHECK UP ON HIM. PATIENT APPEARS COMFORTABLE AT THIS TIME. BED LOW, CALL LIGHT IN REACH. WILL BE GIVING REPORT TO ONCOMING UPPER TIER NURSE SHORTLY.
--- NOTE | 2020-10-22 23:11 | NUR ---
ASSUMED CARE OF PATIENT AT APPROXIMATELY 1910 FROM FINA Weldon RN. PATIENT ALERT AND ORIENTED TO SELF AND LOCATION; PATIENT COULDNT STATE AFTER FIRST WAKING UP BUT LATER ABLE TO STATE IT. PATIENT JOKINGLY ASKED IF HE COULD USE CALL LIGHT TO HIT STAFF WITH. PATIENT TURNS SELF IN BED. MEDICAL TELE STATUS; AFIB W/ BBB ON HEART MONITOR; OXYGEN SATURATION ABOVE 90% ON 4LPM VIA HIGH FLOW NC. PIV S/L. POOR APPETITE. TURNS SELF IN BED. PATIENT CURRENLTY RESTING IN BED; CALL LIGHT IN REACH; BED IN LOWEST POSISTION; BED ALARM ON.
[2020-10-23 04:18] LABS: Albumin, Blood 2.4 g/dL (3.4-5.0); Anion Gap 6 mmol/L (6-16); Blood Urea Nitrogen 23 mg/dL (8-24); CO2, Blood 26 mmol/L (21-32); Calcium, Blood 7.8 mg/dL (8.5-10.1); Chloride, Blood 117 mmol/L (98-108); Creatinine, Blood 0.56 mg/dL (0.60-1.20); Glomerular Filtration Rate >60 (60-); Glucose, Blood 107 mg/dL (70-99); Phosphorus, Blood 3.1 mg/dL (2.5-4.9); Potassium, Blood 3.8 mmol/L (3.5-5.5); Sodium, Blood 149 mmol/L (136-145)
--- NOTE | 2020-10-23 09:26 | NUR ---
BEL perea as THIRD OFFICER student per nurses request
--- NOTE | 2020-10-23 09:30 | NUR ---
Pt is lying in bed, appears to be fatigued. Able to correctly state name and ; when asked where he is states "[place]" but cannot recall where exactly he is, states "I don't really remember" with prompting (what building is this, a bank? post office") he states "a hospital". Asked what the date is he states 1982 and that he is 45 years old. Making some conversation with some jokes here and there, but mostly appears tired and lies down to sleep after conversation. RT Emmy had dc/d the o2 delivery around 8 am; at this time after getting from chair to bed he required 2 l/min as his spo2 dropped to 70s during transfer with MARBLE INSTALLER SUPERVISOR. Decreased to 1 l/min at this time for spo2 94%.
--- NOTE | 2020-10-23 09:45 | NUR ---
Call to Dr. Cox regarding low blood pressure and metoprolol scheduled for this morning. New orders received. pt is lying on his right side, eyes closed and appears to be resting comfortably. Heart rate/rhythm noted to be atrial fibrillation, rate 88-115 range since 0830, currently at 91 bpm.
--- NOTE | 2020-10-23 10:35 | NUR ---
Telephone report given to Jacinda Glez at this time to transfer to medical Covid unit soon.
--- NOTE | 2020-10-23 12:08 | NUR ---
pt sitting up in chair, eating lunch. Per OT, pt tolerated activity while standing and maintained spo2 in 90s range, but when he began walking his spo2 dropped into the 70s range. OT states not sure if it was because of his heel room supervisor on the walker impeding the reading of the pulse oximeter, or acutal spo2 in 70s. He recovered without additional supplemental oxygen being added after rest.
--- NOTE | 2020-10-23 13:27 | NUR ---
Up with assistance to BSC. spo2 remains 91-97% on room air with the activity, and heart rate 110-120 atrial fibrillation while up in chair. At rest heart rate has been 88-100 bpm. Minimal dyspnea with activity noted standing and then transferring to BSC. Voided incontinently in attends before attracting attention of staff to get up to BSC.
--- NOTE | 2020-10-23 13:37 | NUR ---
very small brown loose unformed bowel movement.
--- NOTE | 2020-10-23 13:54 | NUR ---
After using BSC, assisted to stand and sit on side of bed. After a couple of minutes dangling on side of bed, requested to sit in recliner chair next to window. He was able to stand, and walk using walker to chair. Sitting up right, no dyspnea, no c/o discomfort.
--- NOTE | 2020-10-23 15:26 | NUR ---
[facility] to [facility] after sitting up for approx 2 hours in chair. Voided small amount yellow urine and is now lying in bed. No dyspnea, no pain,nor discomfort he states.
--- NOTE | 2020-10-23 17:21 | NUR ---
8 SECOND PAUSE NOTED ON CONTINUOUS NEWS CLIPPING CUTTER. PT IS AWAKE, LYING ON LEFT SIDE, CONVERSANT, DENIES PAIN OR DYSPNEA.
--- NOTE | 2020-10-23 17:24 | NUR ---
Call to Dr. Cox to report 8 second pause in cardiac monitoring.
--- NOTE | 2020-10-23 18:09 | NUR ---
Spoke with daughter in law on the phone this evening, updated her on pt condition and events today. She states that she would really [facility], but would hope that if the pt has passed the 10 or 20 day requirement post initial positive covid testing, that he could go to either the [facility] or [facility] rehab, or even home with home health if that was possible.
--- NOTE | 2020-10-23 19:22 | NUR ---
ASSUMED PT CARE FROM [facility] PT REMAINS IN AFIB; HR 90'S. BP STABLE; SBP 120'S. OXYGEN SATURATIONS 93% ON RA. PT IS SLEEPING AT TIME OF BEDSIDE REPORT.
--- NOTE | 2020-10-24 03:58 | NUR ---
REPORTED OFF TO [facility] PT TRANSPORTED TO MEDICAL FLOOR WITH TELEMETRY; PT REMAINS IN AFIB WITH HR 90-100 WITH EXERTION; HOWEVER, RESTING HR 70-80'S. PT ON 2L OF NC WHILE SLEEPING D/T OXYGEN SATURATIONS 85-87%. HOWEVER, REMOVED FROM OXYGEN PRIOR TO TRANSPORT AND PT HAD OXYGEN SATURATION >90% ON RA. PT REMAINS ALERT AND ORIENTED AND ABLE TO MAKE NEEDS KNOWN. VOIDED IN URINAL PRIOR TO TRANSPORT. STANDBY ASSIST FOR TRANSFER FROM BED TO WHEELCHAIR. VSS, SEE FLOWSHEET.
--- NOTE | 2020-10-24 05:57 | NUR ---
SHIFT SUMMARY ICU XFER @ 0350, A&O, NO ACUTE CHANGES SINCE ASSUMING CARE, NO C/O OF ANY KIND, SLEEPING, CALL LIGHT IN REACH, BED ALARM IN PLACE, WILL CONT TO MONITOR UNTIL REPORT GIVEN TO DAY RN.
[2020-10-24 06:01] LABS: Albumin, Blood 2.4 g/dL (3.4-5.0); Anion Gap 5 mmol/L (6-16); Blood Urea Nitrogen 22 mg/dL (8-24); Bun/Creatinine Ratio 34.7 (12.0-20.0); CO2, Blood 26 mmol/L (21-32); Chloride, Blood 116 mmol/L (98-108); Creatinine, Blood 0.63 mg/dL (0.60-1.20); Digoxin (Lanoxin) 0.44 ug/mL (0.80-2.00); Glomerular Filtration Rate >60 (60-); Glucose, Blood 108 mg/dL (70-99); Phosphorus, Blood 3.2 mg/dL (2.5-4.9); Potassium, Blood 4.2 mmol/L (3.5-5.5); Sodium, Blood 147 mmol/L (136-145)
[2020-10-24 11:34] LABS: Free Thyroxine 1.25 ng/dL (0.70-1.60); Thyroid Stimulating Hormone 1.41 uIU/mL (0.360-4.800); Triiodothyronine, Free 1.6 pg/mL (2.18-3.98)
--- NOTE | 2020-10-24 15:26 | NUR ---
HE HAS BEEN ON AND OFF 2L O2 TODAY. HE HAS NO C/O SOB. HIS SPEECH IS A LITTLE SLOW. HE IS A&O TO SITUATION, PERSON AND PLACE BUT NOT TIME. HE IS PLEASANT. HIS AM MEDICATIONS WERE GIVEN AT DIFFERENT TIMES BECAUSE HIS HEART RATE FLUCTUATES. SPOKE WITH AND TID LOPRESSOR WAS RESUMED INSTEAD OF ANY DIGOXIN OR TOPROL. RIGHT NOW HIS TELE SHOWS AFIB WITH RATE 94. HE DENIES DIZZINESS OR SOB. HIS RESP. ARE IN THE 20'S THOUGH. I WAS TOLD IN REPORT THAT ICU SAID LAST NIGHT THAT THE PATIENT HAD DIARRHEA YESTERDAY BUT IT WASN'T CHARTED. I ASKED THE PATIENT IF HE HAD ANY DIARRHEA YESTERDAY. HE SAID NO. WHEN I TOLD HIM WHAT I HAD BEEN TOLD, HE SAID NO AGAIN. I GAVE HIM HIS MIRALAX AND LATER HIS COLACE. THEN AFTER LUNCH HE HAD A LARGE DIARRHEA STOOL. IT WAS URGENT AND MOSTLY INCONTINENT. HE ALSO HAS HAD A HARD TIME WITH THE URINAL AND THE BSC. HE MISSES. WE WILL HELP HIM MORE CLOSELY IF WE CAN GET ALL OUR PPE ON AND ENTER HIS ROOM IN TIME. HE ATE 40% OF BREAKFAST AND 20% OF LUNCH. APPETITE IS SMALL.
--- NOTE | 2020-10-24 18:26 | NUR ---
HE REMAINS IN DROPLET ISOLATION FOR COVID 19. HE IS NOT SOB. O2 PRN AT 2L. SATS 92 T0 95%. PT RECOMMENDS SNF REHAB BECAUSE HE HAS 22 STEPS INTO THE HOUSE. HE WAS UNABLE TO STEP UP ONTO A STOOL IN THE ROOM TODAY. THE PATIENT SAYS THE STOOL WAS HIGHER THAN HIS STEPS. THEN HE MENTIONED HE ONLY HAS 5 STEPS IN THE BACK OF THE HOUSE. THIS ALL NEEDS TO BE CLARIFIED WITH FAMILY. HE IS ORIENTED BUT NOT THE BEST HISTORIAN. SEE LAST NURSES NOTE FOR MORE DETAILS OF THIS SHIFT.
--- NOTE | 2020-10-25 01:02 | NUR ---
2346 PT HAD A 3.2 SECOND PAUSE THEN WENT BACK TO A. FIB. PER RELATIONS MGR. I CHECKED ON PT WHO IS RESTING WITH EYES CLOSED AT THIS TIME. 2L O2 VIA NC IN PLACE SATTING IN THE LOW TO MID 90'S. 0017 PT 2 MORE PAUSES WHICH WERE IN A ROW THEN WENT TO A. FIB IN THE 30'S TO 60'S. PT CHECKED ON AND RESTING WITH EYES CLOSED. VITALS TAKEN. [address] STEPHENSON INFORMED. LOPRESSOR PO 25 TID DC'D. MAGNESIUM LAB ORDERED. WILL CONTINUE TO MONITOR.
[2020-10-25 04:56] LABS: Hemoglobin 14.4 g/dL (13.5-17.5); Mean Corpuscular HGB 27.6 pg (26.0-34.0); Mean Corpuscular HGB Conc 31.3 g/dL (31.5-36.5); Mean Corpuscular Volume 88 fL (80-100); Mean Platelet Volume 10.7 fL (9.1-12.4); Platelet Count 188 K/mm3 (150-400); RDW Coefficient Variation 13.6 % (11.7-14.2); RDW Standard Deviation 43.7 fL (35.1-46.3); Red Blood Cell Count 5.22 M/mm3 (4.30-5.90); White Blood Cell Count 6.78 K/mm3 (4.00-11.30)
--- NOTE | 2020-10-25 05:05 | NUR ---
BROOM WORKER SUMMARY PT A/O X2 TO SELF AND PLACE. DENIES CHEST PAIN . SOB WITH EXERTION. PT HAS CONVERTED TO A. FLUTTER IN THE 80'S TO 90'S. PT ALSO TRIED TO GET OUT OF BED TO USE BSC AT THIS TIME. NOW REQUIRING 4.5 L O2 VIA NC SATTING AT 90. PT CURRENTLY RESTING IN BED. RT CAME AND SAW PT. WILL CONTINUE TO [facility]. DR. STEPHENSON NOITIED OF NEW CHANGE IN HEART RYTHMN. NO NEW ORDERS. BED ALARM IN PLACE, CALL LIGHT WITHIN REACH. WCC.
[2020-10-25 05:12] LABS: Albumin, Blood 2.6 g/dL (3.4-5.0); Anion Gap 5 mmol/L (6-16); Blood Urea Nitrogen 21 mg/dL (8-24); Bun/Creatinine Ratio 36.5 (12.0-20.0); CO2, Blood 27 mmol/L (21-32); Chloride, Blood 114 mmol/L (98-108); Creatinine, Blood 0.58 mg/dL (0.60-1.20); Glomerular Filtration Rate >60 (60-); Glucose, Blood 105 mg/dL (70-99); Magnesium, Blood 2.4 mg/dL (1.6-2.4); Phosphorus, Blood 2.9 mg/dL (2.5-4.9); Potassium, Blood 4.2 mmol/L (3.5-5.5); Sodium, Blood 146 mmol/L (136-145)
--- NOTE | 2020-10-25 15:29 | NUR ---
ALERT. ORIENTED. PLEASANT. ABLE TO MAKE NEEDS KNOWN. HEART RATE HAS BEEN UP TO 1TWENTIES AFLUTTER TODAY, BUT SINCE 1330 70-80 AFLUTTER. GOOD SATS WITH 3 LPM OXYGEN. TELE ON. BOWEL CARE HELD DUE TO DIARRHEA PAST DAY. WCTM
--- NOTE | 2020-10-26 00:09 | NUR ---
BRIGITTE BOATENG IN THE 80'S. SCHEDULED PO LOPRESSOR GIVEN.
[2020-10-26 04:50] LABS: BASOPHILS ABSOLUTE AUTO 0.02 K/mm3 (0.00-0.23); BASOPHILS PERCENT AUTO 0 % (0-2); EOSINOPHILS ABSOLUTE AUTO 0.03 K/mm3 (0.00-0.68); EOSINOPHILS PERCENT AUTO 0 % (0-6); Hematocrit 44.8 % (37.0-53.0); Hemoglobin 13.6 g/dL (13.5-17.5); IMMATURE GRAN ABSOLUTE AUTO 0.17 K/mm3 (0.00-0.10); IMMATURE GRAN PERCENT AUTO 2 % (0-1); LYMPHOCYTES ABSOLUTE AUTO 0.78 K/mm3 (0.84-5.20); LYMPHOCYTES PERCENT AUTO 10 % (21-46); MONOCYTES ABSOLUTE AUTO 0.75 K/mm3 (0.16-1.47); MONOCYTES PERCENT AUTO 10 % (4-13); Mean Corpuscular HGB 26.9 pg (26.0-34.0); Mean Corpuscular HGB Conc 30.4 g/dL (31.5-36.5); Mean Corpuscular Volume 89 fL (80-100); Mean Platelet Volume 10.9 fL (9.1-12.4); NEUTROPHILS ABSOLUTE AUTO 5.92 K/mm3 (1.96-9.15); NEUTROPHILS PERCENT AUTO 77 % (41-73); Platelet Count 171 K/mm3 (150-400); RDW Coefficient Variation 13.7 % (11.7-14.2); RDW Standard Deviation 44.6 fL (35.1-46.3); Red Blood Cell Count 5.06 M/mm3 (4.30-5.90); White Blood Cell Count 7.67 K/mm3 (4.00-11.30)
[2020-10-26 05:05] LABS: Anion Gap 3 mmol/L (6-16); Blood Urea Nitrogen 25 mg/dL (8-24); Bun/Creatinine Ratio 35.8 (12.0-20.0); CO2, Blood 29 mmol/L (21-32); Calcium, Blood 8.1 mg/dL (8.5-10.1); Chloride, Blood 113 mmol/L (98-108); Glomerular Filtration Rate >60 (60-); Glucose, Blood 112 mg/dL (70-99); Potassium, Blood 4.6 mmol/L (3.5-5.5); Sodium, Blood 145 mmol/L (136-145)
--- NOTE | 2020-10-26 05:32 | NUR ---
EXTERNAL RELATIONS MANAGER SUMMARY PT A/O X4. SLEPT WELL TONIGHT, PLEASANT AND COOPERATIVE. A. FIB IN THE 70'S TO 80'S PER ROCK LATHER. PT DENIES PAIN. REQUIRES MORE OXYGEN AT NIGHT. CURRENTLY ON 3L O2 VIA NC VS 2L DURING THE DAY. CONT. OXYMITRY IN PLACE SATTING IN THE LOW 90'S. CALL LIGHT WITHIN REACH, BED ALARM IN PLACE.
--- NOTE | 2020-10-26 12:12 | NUR ---
PER IF LOOSE IV OK FOR NO IV ASSESS NEEDED.
--- NOTE | 2020-10-26 15:36 | NUR ---
ALERT. ORIENTED. PLEASANT. IMPULSIVE. EXERTIONAL DYSPNEA. CONTINENT/INCONTINENT. TELE ON. IS ABLE TO MAKE NEEDS KNOWN. HEART RATE HAS BEEN UNDER 100 AFLUTTER, AVERAGING IN THIS SHIFT. TM
--- NOTE | 2020-10-27 05:15 | NUR ---
GRANITE WORKER SUMMARY PT A/O X4. SLEPT WELL TONIGHT. DENIES PAIN. CONTINUES TO BE ON 3L O2 VIA NC AT NIGHT SATTING IN THE LOW TO MID 90'S. PT WILL DESAT TO THE HIGH 80'S WHEN STANDING UP. PT HAD SLEEP STUDY DONE OVERNIGHT. NO ACUTE CHANGES. DENIES PAIN. BED ALARM IN PLACE, CALL LIGHT WITHIN REACH. A.FIB IN THE 80'S PER ACCOUNT MANAGER.
[2020-10-27 08:09] LABS: Anion Gap 3 mmol/L (6-16); Blood Urea Nitrogen 24 mg/dL (8-24); CO2, Blood 29 mmol/L (21-32); Calcium, Blood 8.1 mg/dL (8.5-10.1); Chloride, Blood 112 mmol/L (98-108); Creatinine, Blood 0.55 mg/dL (0.60-1.20); Glomerular Filtration Rate >60 (60-); Glucose, Blood 94 mg/dL (70-99); Potassium, Blood 4.4 mmol/L (3.5-5.5); Sodium, Blood 144 mmol/L (136-145)
[2020-10-27] MEDS ORDERED: THERA-D2000 UNIT PO (12:54)
[2020-10-27] MEDS ORDERED: ACET325 PO (12:57)
[2020-10-27] MEDS ORDERED: ROBITUSSIN DM PO (13:00)
[2020-10-27] MEDS ORDERED: MELATONIN5 M1 PO (13:01)
[2020-10-27] MEDS ORDERED: DOCU100 PO (13:01)
[2020-10-27] MEDS ORDERED: MIRALAX17 GM PO (13:03)
[2020-10-27] MEDS ORDERED: METO25 PO (13:03)
[2020-10-27] MEDS ORDERED: SENN187 PO (13:04)
[2020-10-27] MEDS ORDERED: XARELTO20 MG PO (13:04)
--- NOTE | 2020-10-27 16:44 | NUR ---
1516 PT DISCHARGED HOME WITH HOME HEALTH VIA W/C [place]. BELONGINGS, D/C PAPERWORK AND PORTABLE O2 WITH PT, PT HAD MASK PLACED PRIOR TO LEAVING ROOM. PT DID NOT QUALIFY FOR HOME O2 DURING THE DAY, ALTHOUGH HE DID AT NIGHT. ON RA THIS SHIFT. BREATHING EASY AND NON LABORED, LUNGS CLEAR. SPOKE WITH DAUGHTER AND PRIOR TO D/C, THEY AGREED WITH PLAN OF CARE. NEW RX FAXED TO [facility]. IV REMOVED. NO OTHER CHANGES OR CONCERNS.
== END 2020-10-27 15:16 | disposition home health service (06) | DRG 871 ==
LOC: ER 16:31 → MEDS 19:24 → ICUE 19:24 → MEDS 21:04 → ICUE 10-18 00:22 → MEDS 10-24 03:32 → ENPENDDIS 10-27 12:22 → MEDS 10-27 15:16
PROVIDERS: Emergency Medicine; Internal Medicine; Internal Medicine Critical Care Medicine; ADMIT Internal Medicine
PROC: 3E0433Z Introduction of Anti-inflammatory into Central Vein, Percutaneous Approach (ICD-10-PCS; principal; 2020-10-17)
PROC: XW043E5 Introduction of Remdesivir Anti-infective into Central Vein, Percutaneous Approach, New Technology Group 5 (ICD-10-PCS; 2020-10-17)
PROC: 8E0ZXY6 Isolation (ICD-10-PCS; 2020-10-17)
DX: A41.89 Other specified sepsis (principal); G92 Toxic encephalopathy; J12.82 Pneumonia due to coronavirus disease 2019; J15.9 Unspecified bacterial pneumonia; J96.01 Acute respiratory failure with hypoxia; U07.1 COVID-19; F05 Delirium due to known physiological condition; I48.92 Unspecified atrial flutter; E87.0 Hyperosmolality and hypernatremia; E86.0 Dehydration; E87.6 Hypokalemia; F03.90 Unspecified dementia, unspecified severity, without behavioral disturbance, psychotic disturbance, mood disturbance, and anxiety; I10 Essential (primary) hypertension; I48.0 Paroxysmal atrial fibrillation; R65.20 Severe sepsis without septic shock; R74.01 Elevation of levels of liver transaminase levels; G47.33 Obstructive sleep apnea (adult) (pediatric); E66.9 Obesity, unspecified; Z79.01 Long term (current) use of anticoagulants; R53.1 Weakness; Z87.891 Personal history of nicotine dependence
CPT/HCPCS: 0241U; 36415; 51703; 71045; 80048; 80053; 80069; 80162; 81001; 83605; 83735; 83880; 84100; 84439; 84443; 84481; 85025; 85027; 85610; 85730; 87040; 87070; 87086; 87205; 93005; 93010; 93306; 94761; 94762; 96361; 96365; 96375; 97110; 97116; 97162; 97166; 97530; 97535; 99285-25; A9270; C1751; J0282; J0696; J1100; J1160; J1650; J1956; J3480; J7030; J7050; J7060

== ENCOUNTER 2021-02-18 05:47 | Day surgery (SDC) | payer OTHER ==
[~2021-02-18] VITALS: Ht 180.3 cm; Wt 109.0 kg
[~2021-02-18 05:47] MED LIST: ACET325 PO; DOCU100 PO; FURO40 PO; MELATONIN5 M1 PO; METO25 PO; MIRALAX17 GM PO; POTCHL20ER PO; ROBITUSSIN DM PO; SENN187 PO; THERA-D2000 UNIT PO; VITAMIN D325 MC3 PO; XARELTO20 MG PO; ZINC15 PO
[2021-02-18] MEDS ORDERED: ATOR40TA PO (06:40)
--- NOTE | 2021-02-18 07:42 | NUR ---
PT TOLERATES CARDIOVERSION WELL. VSS. NADN. NSR ON MONITOR. SPOKE WITH PT , ABRIL- REGARDING CHANGES TO MEDICATION. PER DR GARCIA INCREASING METOPROLOL TO 50MG BID. CALL LIGHT WITHIN REACH. PT RESTING COMFORTABLY
--- NOTE | 2021-02-18 07:55 | NUR ---
PT IV DC'D. CATH INTACT. PRESSURE DSG APPLIED. VSS. NADN. PT DRESSES SELF WITHOUT DIFF. PT DC TO HOME VIA S/O BY WC
== END 2021-02-18 07:55 | disposition home or self-care (01) ==
LOC: MHTC 05:47
DX: I48.0 Paroxysmal atrial fibrillation (principal); E66.9 Obesity, unspecified; I10 Essential (primary) hypertension; E78.2 Mixed hyperlipidemia; I45.10 Unspecified right bundle-branch block; R60.0 Localized edema; Z86.73 Personal history of transient ischemic attack (TIA), and cerebral infarction without residual deficits; Z87.891 Personal history of nicotine dependence; Z86.16 Personal history of COVID-19; Z79.01 Long term (current) use of anticoagulants; Z68.34 Body mass index [BMI] 34.0-34.9, adult
CPT/HCPCS: 92960; 93005; 93010; 99152; 99153; J2250; J3010; J7030

== ENCOUNTER 2021-09-15 09:28 | Day surgery (SDC) | payer OTHER ==
[~2021-09-15] VITALS: Ht 177.8 cm; Wt 250.0 kg
[~2021-09-15 09:28] MED LIST changes: +ATOR40TA PO
--- NOTE | 2021-09-15 11:00 | NUR ---
1000 ROOM PREPPED AND PATIENT BROUGHT TO ROOM AND UNDRESSED FROM WAIST UP. PLACED ON THE MONITOR, AFIB NOTED AND STRIP OBTAINED. NURSING ASSESSMENT DONE. PIV STARTED TO THE LEFT HAND. IVF STARTED.NC O2 IN PLACE. MONITOR IN PLACE AND DEFIB PADS IN PLACE. DEFIB AT THE BEDSIDE. CONSENT AND ORDERS, H&P, MED RECONILIATION AND 24 HOUR UPDATE ALL COMPLETED. TIME OUT PERFORMED UPON DR. SINGH'S ARRIVAL AND CONSCIOUS SEDATION GIVEN ORDERED BY DR. SINGH BY BRITTON PRATT RN. SEE DOCUMENTATION. [address]. SINGH. STRIP ON CHART. PATIETN CONVERTED FROM AFIB TO SINUS BRADYCARDIA. CONTINUE TO MONITOR AND RECOVERY PERFORMED BY BRITTON CONTRERAS, MARTÍNEZ. PATIENT FULLY AWAKE, PIV REMOVED, CATH TIP INTACT AND PRESSURE DRESSING APPLIED TO THE LEFT HAND. REDNESS NOTED TO THE CHEST WALL FROM THE DEFIB PADS AND PATIENT UNDERSTANDS TO APPLY ITCH CREAM IF NEEDED. REVIEWED ALL POST DCCV INSTRUCTIONS AND FOLLOW UP APPOINTMENT WITH THE FAMILY AND PATIENT AND PATIENT DISCHARGED HOME WITH FAMILY AT 1125 WITH WHEELCHAIR AWAKE/ALERT/ORIENTED. NO MEDICATION CHANGES AND FOLLOW UP APPOINTMENT ON 10/01/21 @[address] SINGH
== END 2021-09-15 22:58 | disposition home or self-care (01) ==
LOC: MHTC 09:28
DX: I48.19 Other persistent atrial fibrillation (principal); I45.10 Unspecified right bundle-branch block; R06.00 Dyspnea, unspecified; R53.83 Other fatigue; E66.9 Obesity, unspecified; I10 Essential (primary) hypertension; E78.2 Mixed hyperlipidemia; I35.0 Nonrheumatic aortic (valve) stenosis; Z86.73 Personal history of transient ischemic attack (TIA), and cerebral infarction without residual deficits; Z87.891 Personal history of nicotine dependence; Z79.01 Long term (current) use of anticoagulants; Z68.35 Body mass index [BMI] 35.0-35.9, adult
CPT/HCPCS: 92960; 93005; 93010; 99152; J2250; J3010; J7030

== ENCOUNTER 2022-05-01 15:00 | Emergency (ER) | payer OTHER ==
[~2022-05-01] VITALS: Ht 175.3 cm; Wt 104.3 kg
== END 2022-05-01 17:25 | disposition home or self-care (01) ==
LOC: ER 15:00
DX: S01.81XA Laceration without foreign body of other part of head, initial encounter (principal); S60.511A Abrasion of right hand, initial encounter; I10 Essential (primary) hypertension; I48.91 Unspecified atrial fibrillation; Z86.16 Personal history of COVID-19; Z79.899 Other long term (current) drug therapy; Z79.01 Long term (current) use of anticoagulants; W01.198A Fall on same level from slipping, tripping and stumbling with subsequent striking against other object, initial encounter
CPT/HCPCS: 70450

== ENCOUNTER 2023-01-03 08:28 | Day surgery (SDC) | payer OTHER ==
[~2023-01-03] VITALS: Ht 175.3 cm; Wt 115.0 kg
[2023-01-03] VITALS (19 sets, daily range): BP systolic 89–157; BP diastolic 63–109
[~2023-01-03 08:28] MED LIST changes: +ALBU90OI INH; +Amiodarone HCl200 MG PO; +FISH OIL/OMEGA 3 PO; +ZINC50 M3 PO
--- NOTE | 2023-01-03 10:14 | NUR ---
DR RODRIGES ARRIVED.
--- NOTE | 2023-01-03 10:28 | NUR ---
PT TOLERATED ONE 200J SYNCHRONIZED SHOCK WELL.
--- NOTE | 2023-01-03 11:34 | NUR ---
DISCHARGE INSTRUCTIONS REVIEWED WITH PT AND HIS , ALL QUESTIONS ANSWERED. 20 G IV DISCONTINUED FROM LEFT AC WITH INTACT CANNULA. PT ESCORTED OUT VIA WHEELCHAIR.
== END 2023-01-03 22:42 | disposition home or self-care (01) ==
LOC: MHTC 08:28
DX: I48.19 Other persistent atrial fibrillation (principal); Z87.891 Personal history of nicotine dependence; I11.9 Hypertensive heart disease without heart failure; Z86.73 Personal history of transient ischemic attack (TIA), and cerebral infarction without residual deficits; E78.5 Hyperlipidemia, unspecified; I45.10 Unspecified right bundle-branch block; I44.0 Atrioventricular block, first degree
CPT/HCPCS: 92960; 93005; 93010; J2704; J7030